=== PATIENT | male | born 1950 | race Hispanic/Latino ===

== ENCOUNTER 2017-12-14 11:40 | Inpatient (IN) | payer MEDICARE, OTHER ==
[~2017-12-14 11:40] MED LIST: ISOVUE-370 76%-LOCM 1 ML ONE
[2017-12-14] MEDS ORDERED: Propofol 1,000 MG/100 ML VIAL IV ONE (11:56)
[2017-12-14 12:02] LABS: #Eosinphils 0.1 thou/uL (0.0-0.7); #Lymphocytes 0.6 thou/uL (1.20-3.40); #Monocytes 0.3 thou/uL (0.11-0.59); #Neutrophils 6.1 thou/uL (1.40-6.50); %Basophils 0.5 % (0.0-1.0); %Eosinophils 1.1 % (0.0-10.0); %Lymphocytes 8.3 % (21.0-51.0); %Monocytes 4.3 % (0.0-10.0); %Neutrophils 85.9 % (42.0-75.0); Mean Corpuscular HGB CONC 32.7 g/dL (32.0-36.0); Mean Corpuscular Hemoglobin 31.6 pg (27.0-31.0); Mean Corpuscular Volume 96.6 fL (78.0-98.0); Mean Platelet Volume 11.8 fL (7.4-10.4); Platelet Count 109 thou/uL (130-400); RBC Distribution Width 14.9 % (11.5-14.5); Red Blood Cell (RBC) Count 4.44 mill/uL (4.70-6.10); White Blood Cell (WBC) Count 7.1 thou/uL (4.8-10.8)
[2017-12-14 12:02] LABS: Base Excess-Venous -0.7 mmol/L (0 (+/- 2.5)); Bicarbonate (HCO3v) 26.8 mmol/L (1.0-85.0); Calcium, Ionized 0.93 mmol/L (1.12-1.32); Hemoglobin - Calc 14.1 g/dL (12.0-18.0); Lactate 1.18 mmol/L (0.50-2.20); O2 Tension (PvO2) 45.4 mmHg (35.0-45.0); Potassium 4.8 mmol/L (3.4-4.7); T. Carbon Dioxide 28.5 mmol/L (1.0-85.0); pH (Venous) 7.296 (7.35-7.45); vO2 Saturation-calc 75.3 % (94-98)
[2017-12-14 12:03] LABS: PTT 45.3 SEC (22.9-36.1); Prothrombin Time 16.4 SEC (12.0-14.7)
[2017-12-14 12:05] LABS: INR-International Normal Ratio 1.3
[2017-12-14 12:11] LABS: ALT (SGPT) 12 U/L (8-55); AST (SGOT) 34 U/L (5-34); Albumin 4.5 g/dL (3.4-4.8); Alkaline Phosphatase 185 U/L (40-150); Anion Gap 25 mmol/L (10-20); BUN (Urea Nitrogen) 77 mg/dL (8.4-25.7); Bilirubin, Total 0.7 mg/dL (0.2-1.2); Calc. Creatinine Clearance 0 mL/min (70-130); Calcium 8.7 mg/dL (7.8-10.44); Carbon Dioxide 18 mmol/L (23-31); Chloride 98 mmol/L (98-107); Estimated GFR-MDRD 6; Globulin 4.4 g/dL (2.4-3.5); Glucose 191 mg/dL (80-115); Potassium 4.8 mmol/L (3.5-5.1); Protein, Total 8.9 g/dL (5.8-8.1); Sodium 136 mmol/L (136-145)
[2017-12-14 12:15] LABS: CKMB 3.1 ng/mL (0-6.6); PLT Morphology Comment Appears Decreased; RBC Morphology Normal
[2017-12-14 12:33] LABS: Amphetamine Not Detected (NotDetected); Barbiturates Screen Not Detected (NotDetected); Benzodiazepine Screen Not Detected (NotDetected); Cocaine Metabolite Screen Not Detected (NotDetected); Medtox Control Line Valid? VALID (VALID); Medtox Reader # READER 1; Methadone Not Detected (NotDetected); Methamphetamine Not Detected (NotDetected); Opiate Screen Not Detected (NotDetected); Oxycodone Screen Not Detected (NotDetected); Phencyclidine (PCP) Not Detected (NotDetected); THC/Cannabinoid Screen Not Detected (NotDetected); Tricyclic Screen Not Detected (NotDetected)
[2017-12-14] MEDS ORDERED: Labetalol HCl 100 MG/20 ML VIAL ONE (12:36)
--- NOTE | 2017-12-14 12:42 | CT ---
CT HEAD NONCONTRAST: History: Altered mental status. Headache. FINDINGS: No comparison. Ventricular system is diffusely dilated. Hyperdense fluid is present throughout the 3r d and 4th ventricles and the left lateral ventricle. A small amount of blood is also present within t he right lateral ventricle. Septum pellucidum is shifted rightward slightly by the asymmetry of blood within the ventricles. There is diffuse effacement of the cortical sulci and basilar cisterns. Cereb ellar tonsils extend into the foramen magnum. Tiny foci of hyperdense fluid are noted into the left f rontal white matter. IMPRESSION: 1. Obstructive hydrocephalus with large amount of acute intraventricular hemorrhage as detailed above . Possible very small amount of left frontal intraparenchymal hemorrhage. Cause for hemorrhage is not readily apparent and may be choroidal or appendical in origin. 2. Diffuse cerebral edema secondary to the hemorrhage. Findings were called to Dr. Campbell in the Emergency Department at 1222 hours. Code CR POS: CET
--- NOTE | 2017-12-14 12:44 | RAD ---
CHEST 1 VIEW: HISTORY: Status post intubation. Mental status change. FINDINGS: Portable single view chest demonstrates an endotracheal tube that extends beyond the clavicles. Ther e are sternotomy wires. Overlying defibrillator pads are noted. Heart size is enlarged. Pulmonary vessels are within normal limits. Costophrenic angles are clear. No masses or consolidation. No pn eumothorax or osseous abnormalities. IMPRESSION: 1. Cardiomegaly. No acute cardiopulmonary process. 2. Endotracheal tube with the distal tip 2.8 cm above the alf. POS: [facility]
[2017-12-14] MEDS ORDERED: Lidocaine 1% w/Epinephrine 1:100K 20 ML VIAL ONE (13:12)
[2017-12-14 13:17] LABS: Actual Bicarbonate (HCO3a) 22.3 mEq/L (22-28); CO2 Tension 36.9 mmHg (35.0-45.0); Carboxyhemoglobin (COHb) 1.1 gm% (0.0-3.0); Hemoglobin (Hb) 13.6 g/dL (14.0-18.0); O2 Tension (PaO2) 114.5 mmHg (> 80.0)
[2017-12-14 13:18] LABS: ALV-art Gradient 195.875 (0-20); Puncture Site RRA
[2017-12-14] MEDS ORDERED: niCARdipine 20MG In NaCl 20 MG/200 ML BAG ONE (13:39)
[2017-12-14] MEDS ORDERED: Ondansetron HCl/PF 4 MG/2 ML Vial IVP PRN (13:41)
[2017-12-14] MEDS ORDERED: niCARdipine 20MG in NaCl 200 ML BAG IVPB PRN (13:41)
[2017-12-14] MEDS ORDERED: CCU Electrolyte Replacement 1 EACH IVPB ONE (13:41)
[2017-12-14] MEDS ORDERED: Ventilator Sedation Protocol 1 EACH FS SCH (13:45)
--- NOTE | 2017-12-14 15:29 | CT ---
CT ANGIOGRAM OF THE HEAD: Date: 12/14/17 HISTORY: Extensive intraventricular hemorrhage. Patient is a dialysis patient. Evaluate for possible aneurysm. COMPARISON: 12/14/17 at 1219 hours. TECHNIQUE: Noncontrast head CT is performed in the axial plane. CT angiogram of the head is performed in the axi al plane. Three-dimensional reformatted images are submitted for interpretation. FINDINGS: NONCONTRAST HEAD CT: Redemonstration of marked intraventricular hemorrhage. The amount of ventricular blood has not signif icantly changed. The overall configuration of the ventricular system is stable. There has been interv al placement of a ventricular shunt catheter via the right frontal approach. There is hemorrhage tai g the shunt catheter placement compatible with iatrogenic change. There is no midline shift. Basilar cisterns are patent. Stable brain volume. Stable aeration of the sinuses. CT ANGIOGRAM: The distal cervical and intracranial carotid arteries have appropriate enhancement and luminal diamet er. There is atherosclerosis of both cavernous segments. Anterior Circulation: Symmetric enhancement and luminal diameter of the A1 and M1 segments. Proximal A2 segments and MCA br anches are also symmetric. There is no evidence of an anterior circulation aneurysm. Posterior Circulation: Limited evaluation of both PICA artery origins. The left PICA artery origin appears to be unremarkabl e. Both vertebral arteries supply a normal appearing basilar artery. The left and right P1 segments h ave symmetric enhancement and luminal diameter. No evidence of a posterior circulation aneurysm. IMPRESSION: 1. Extensive intraventricular hemorrhage. Patient is status post ventricular shunt catheter placeme nt. 2. No obvious anterior circulation or posterior circulation aneurysm. POS: [facility]
[2017-12-14] MEDS ORDERED: niCARdipine HCl 25 MG in Sodium Chloride 0.9% 250 ML 240 ML IVPB PRN (15:36)
[2017-12-14] MEDS ORDERED: Potassium Phosphate 12 MMOL in Sodium Chloride 0.9% 250 ML 250 ML IV PRN (15:37)
[2017-12-14] MEDS ORDERED: DISCONTINUE PREVIOUS NARCOTIC PAIN MEDICATIONS AND BENZODIAZEPINES FS SCH (15:37)
[2017-12-14] MEDS ORDERED: Magnesium 2 GM/NS 0.9% 100 ML 2 GM in Premix Bag 1 BAG IVPB PRN (15:37)
[2017-12-14] MEDS ORDERED: Propofol BOLUS 1,000 MG/100 ML VIAL IV PRN (15:37)
[2017-12-14] MEDS ORDERED: Propofol 1,000 MG/100 ML VIAL IV PRN (15:37)
[2017-12-14] MEDS ORDERED: Potassium Phosphate 15 MMOL in Sodium Chloride 0.9% 250 ML 250 ML IV PRN (15:37)
[2017-12-14] MEDS ORDERED: Potassium Chloride 40 MEQ in Premix Bag 1 BAG IVPB PRN (15:37)
[2017-12-14] MEDS ORDERED: Fentanyl BOLUS 250 ML IVPB PRN (15:37)
[2017-12-14] MEDS ORDERED: Potassium Chloride 20 MEQ TAB PO PRN (15:37)
[2017-12-14] MEDS ORDERED: CCU ELECTROLYTE REPLACEMENT PROTOCOL FS PRN (15:37)
[2017-12-14] MEDS ORDERED: Potassium Phosphate 9 MMOL in Sodium Chloride 0.9% 100 ML IVPB PRN (15:37)
[2017-12-14] MEDS ORDERED: Potassium Chloride 40 MEQ in Sodium Chloride 0.9% 250 ML 250 ML IVPB PRN (15:37)
[2017-12-14] MEDS ORDERED: Lorazepam 2 MG/ML VIAL SLOW IVP PRN (15:37)
[2017-12-14] MEDS ORDERED: Magnesium Oxide 400 MG TAB PO PRN ×2 (15:37)
[2017-12-14] MEDS ORDERED: fentaNYL Citrate/PF 2,000 MCG in Sodium Chloride 0.9% 60 ML IV SCH (15:37)
[2017-12-14 16:42] LABS: Troponin I 0.319 ng/mL (< 0.028)
[2017-12-14] MEDS: Sodium Chloride 0.9% 1,000 ML IV SCH (17:38)
--- NOTE | 2017-12-14 18:56 | OP ---
DATE OF PROCEDURE: 12/14/2017 PROCEDURE: Right external ventricular drain placement. DIAGNOSES: Intraventricular hemorrhage and coma and obstructive hydrocephalus. CLINICIAN: Ayaan Granados PA-C PROCEDURE IN DETAIL: The patient's right frontal scalp was prepped with a Betadine solution. Cindy 's point was identified and marked. 1% lidocaine with epinephrine was administered at the site with a total of 2 mL given. The scalp was incised with #15 blade knife over the same marked incision poin t. A cranial twist drill was used to create a josé antonio hole and a ventricular catheter was placed at 6 c m into the right lateral ventricle of bloody CSF per tube was visualized. This was then hooked up to the Moya drain at 10 cm of water. The incision was closed with 3-0 Ethilon and the drain wa s tied down with . Sterile technique was practiced throughout the duration of the procedure. T he wound site was appropriately dressed. The patient tolerated the procedure well.
--- NOTE | 2017-12-14 19:55 | CON ---
DATE OF CONSULTATION: 12/14/2017 SERVICE: Renal Medicine. HISTORY OF PRESENT ILLNESS: Mr. Farah is a 67-year-old male with ESRD - on maintenance hemo dialysis Thursday, Thursday, and Thursday, admitted for mental status change. Imaging of the head with a CT scan showed increased intracranial pressure from hydrocephalus. Neurosurgery has been consulted. We are now being consulted for his maintenance hemodialysis. Due t o the recent acute cerebrovascular event, we will hold dialysis today and resume him back tomorrow, T . Initial CT of the brain showed an obstructive hydrocephalus with large amount of acute intraventricul ar hemorrhage. There is a possible small amount of left frontal intraparenchymal hemorrhage. REVIEW OF SYSTEMS: Not obtainable since the patient is unresponsive. Based on the history, the bharti ent presented with headache and mental status change. MEDICATIONS: Currently on fentanyl bolus p.r.n., Ativan 2 mg IV q.1 hour p.r.n. He is on nicardipin e drip, maintaining BP at least 140 systolic or greater or around 140 systolic. Normal saline at 30 mL an hour. PAST MEDICAL HISTORY: 1. Type 2 diabetes mellitus. 2. Hypertension. 3. ESRD - currently on maintenance hemodialysis. 4. History of hyperlipidemia. 5. Diabetic neuropathy with diabetic retinopathy. PAST SURGICAL HISTORY: 1. Status post AV fistula placement. 2. Status post left eye surgery. 3. Status post cuffed hemodialysis catheter placement. SOCIAL HISTORY: The patient is , 2 children. He lives in [place]. 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 Education, third year high school. Occasional alcohol, currently not s moking, no IV drug abuse. Status post blood transfusion. ALLERGIES: No known drug allergies. TRAUMA: None. IMMUNIZATIONS: Up to date. HOSPITALIZATIONS: Please see past medical history. PHYSICAL EXAMINATION: VITAL SIGNS: Blood pressure is 133/64, heart rate 101, respiratory rate 18, O2 sat 100%. GENERAL: The patient is not awake, sedated and intubated. SKIN: Adequate turgor. HEENT: Pinkish conjunctivae, anicteric sclerae. NECK: No neck mass, no carotid bruits, no JVD. CHEST: No deformities. LUNGS: Clear breath sounds, no wheezing. HEART: Normal sinus rhythm. No murmur, no gallops, no rubs. ABDOMEN: Globular, soft, nontender, no masses. EXTREMITIES: No edema, no deformities. NEUROLOGIC: Unresponsive. LABORATORY DATA: Laboratories of 12/14/2017, white count 7.1, hemoglobin 14. Sodium 136, potassium 4.8, chloride 104, carbon dioxide is 18, BUN 77, creatinine 8.35. Troponin I 0.319, calcium 8.7. IMAGING: CT scan of the brain showed obstructive hydrocephalus with large amount of acute intraventr icular hemorrhage. ASSESSMENT AND PLAN: 1. Status post cerebrovascular accident - with obstructive hydrocephalus - Neurosurgery is following . Continue supportive care. 2. End-stage renal disease, stable. We will continue current maintenance hemodialysis. Due to the recent acute cerebrovascular accident, we will hold off dialysis tonight. We will reevaluate the pat ient for his regular hemodialysis in a.m. Due to the recent CVA bleed, we will be avoiding heparin u se with this patient. Overall, prognosis remains guarded with this patient. Overall, agree with current management.
[2017-12-14] MEDS: CEFAZOLIN/Water 2 GM/20 ML SYRINGE SLOW IVP SCH (20:12)
--- NOTE | 2017-12-14 20:24 | CT ---
CT BRAIN WITHOUT CONTRAST: HISTORY: Intracerebral hemorrhage. Stroke. COMPARISON: CT brain from the same day. FINDINGS: There has been interval placement of a right frontal drainage catheter. There is a new right frontal intraparenchymal hemorrhage around the catheter tract. The ventricular system is massively dilated. There is hemorrhage throughout the lateral ventricles, as well as the third ventricle, fourth ventr icle, and foramen of Monro. There is some loss of normal sulcation. There is white matter edema. There is subarachnoid hemorrhag e along both sylvian fissures. There is also what appears to be some subarachnoid hemorrhage along t he bilateral temporal lobes. IMPRESSION: 1. Interval placement of a right transfrontal shunt catheter with no significant improvement of the intraventricular hemorrhage or ventricular size. 2. New subarachnoid hemorrhage throughout both sylvian fissures, and along both temporal lobes. The re is also hemorrhage along the tentorium. 3. Transependymal flow of cerebrospinal fluid. POS: [facility]
[2017-12-15] MEDS ORDERED: Norepinephrine 8 MG/0.9% NS 250 ML ONE (00:28)
[2017-12-15] MEDS ORDERED: Norepinephrine 8 MG/250 ML BAG IVPB PRN (00:47)
[2017-12-15] MEDS: CEFAZOLIN/Water 2 GM/20 ML SYRINGE SLOW IVP SCH ×2 (04:21→12:25)
[2017-12-15 05:38] LABS: Anion Gap 27 mmol/L (10-20); BUN (Urea Nitrogen) 85 mg/dL (8.4-25.7); Calc. Creatinine Clearance 7 mL/min (70-130); Calcium 8.7 mg/dL (7.8-10.44); Carbon Dioxide 19 mmol/L (23-31); Chloride 97 mmol/L (98-107); Estimated GFR-MDRD 5; Glucose 173 mg/dL (80-115); Potassium 4.7 mmol/L (3.5-5.1); Sodium 138 mmol/L (136-145)
[2017-12-15 05:43] LABS: #Lymphocytes 0.5 thou/uL (1.20-3.40); #Monocytes 0.6 thou/uL (0.11-0.59); #Neutrophils 8.3 thou/uL (1.40-6.50); %Eosinophils 0.2 % (0.0-10.0); %Lymphocytes 5.7 % (21.0-51.0); %Monocytes 6.3 % (0.0-10.0); %Neutrophils 87.8 % (42.0-75.0); Hemoglobin 11.9 g/dL (14.0-18.0); Mean Corpuscular HGB CONC 34.4 g/dL (32.0-36.0); Mean Corpuscular Hemoglobin 32.2 pg (27.0-31.0); Mean Corpuscular Volume 93.6 fL (78.0-98.0); Mean Platelet Volume 11.9 fL (7.4-10.4); Platelet Count 129 thou/uL (130-400); RBC Distribution Width 15.1 % (11.5-14.5); White Blood Cell (WBC) Count 9.4 thou/uL (4.8-10.8)
[2017-12-15 05:52] LABS: HBSAg Index 0.16 S/CO (0-0.99); Hep B Surf Ag Non-Reactive S/CO (NonReactive)
[2017-12-15 07:28] LABS: pH, Arterial 7.62 (7.35-7.45)
[2017-12-15 07:29] LABS: Actual Bicarbonate (HCO3a) 20.8 mEq/L (22-28); CO2 Tension 20.8 mmHg (35.0-45.0); Carboxyhemoglobin (COHb) 0.4 gm% (0.0-3.0); Hemoglobin (Hb) 11.4 g/dL (14.0-18.0); O2 Tension (PaO2) 66.6 mmHg (> 80.0)
[2017-12-15 07:30] LABS: Potassium - ABG Lab 4.8 mmol/L (3.70-5.30)
--- NOTE | 2017-12-15 08:00 | HP ---
HISTORY OF PRESENT ILLNESS: Mr. Farah is a 67-year-old gentleman, who presents to the emergency [facility] via EMS for altered mental status and unspecified stroke symptoms. He was then departmen t with a CT scan performed of the brain showing massive intraventricular hemorrhage filling and expan ding the left lateral ventricle, third ventricle, and fourth ventricle with a small area of posterior blood in the occipital horn, in the atrium of the right ventricle. Additionally, he has obstructive ventriculomegaly throughout the ventricular system. According to family at bedside, patient was in his normal state of health this morning at 10:30, preparing to go to dialysis, which he has 3 times a week for chronic kidney disease, related to hypertension and diabetes. His family states that he st arted to report that he feels so that he must have eaten something that did not agree with him, as he was having hiccups and abdominal pain, then loaded up to go to dialysis, and from there, his neurolo gic status began to deteriorate further to a situation where he was unable to get up out of the chair to get to his walker. At this point, EMS was called. Upon arrival, he declined further interventio n that was recommended. For me at bedside, he is nonresponsive. He is intubated. He has pupils benjamin t are minimally reactive to light. The left pupil is somewhat smaller than the right, measuring 2 mm versus 3. PAST MEDICAL HISTORY: Significant for diabetes, hypertension, chronic kidney disease. CURRENT MEDICATIONS: Amlodipine, aspirin, losartan, metoprolol, hydralazine, gemfibrozil, simvastati n, Tradjenta, sertraline, pantoprazole, Renvela, Humalog, Lantus. latanoprost, timolol, Trusopt, Carolyn lyvite, doxycycline. ALLERGIES: No known drug allergies. PAST SURGICAL HISTORY: Cholecystectomy and then revision abdominal surgery. PHYSICAL EXAMINATION: Again, all previously described. ASSESSMENT: Acute intraventricular hemorrhage and coma. PLAN: I discussed with the patient's family at bedside that, at this time, the patient had life-thre atening ventriculomegaly secondary to impaired ventricular drainage, some massive intraventricular he morrhage that the best step to take in terms of life-saving procedure would be to place an external v entricular drain. The family agrees to this and would like to proceed. I did explain to them that, even with this, his prognosis is likely poor, although guarded at this time and that we would know mo re likely 24 hours from now if we got good placement of the catheter with patent drainage of the flui d sustained over that period of time. As we are unsure of the etiology of his hemorrhage, we will ob tain a CTA of brain and we will admit to the ICU with q.1-hour neuro checks. We will consult Nephrol ogy for the purpose of guidance and fluid resuscitation and restarting dialysis as needed. I will co nsult Pulmonary Critical Care for management of the ventilator and the medical issues while in the IC U. Head of be will be elevated at 30. We will place a ventricular drain and set it to 10 cm of wate r and leave it open. Ayaan Granados PA-C., dictating for Dr. King.
--- NOTE | 2017-12-15 08:12 | CON ---
DATE OF CONSULTATION: 12/14/2017 HISTORY OF PRESENT ILLNESS: This is a 67-year-old Latin-H[place]ian gentleman, who seeks care at [facility], Dr. Pulliam. As per his , he woke up this morning with altered mental status and a headache. Two months ago, he was hospitalized with an acute abdomen, complicated by an extensive bleeding following cholecystec mae. He then had a CT of his head which shows an obstructive hydrocephalus with a large amount of acute in traventricular hemorrhage, left frontal intraparenchymal hemorrhage, and diffuse cerebral edema. An intraventricular bolt was placed in. Emergency CT angio with contrast was performed. He is now in the ICU on the vent and reason for the consult. His is at the bedside, who gives extensive adequate history. PAST MEDICAL HISTORY: Pertinent for hypertension, diabetes, chronic renal failure, and reflux. CHRONIC MEDICATIONS: Amlodipine 10, aspirin 81, losartan 50, metoprolol 50, hydralazine 10 2 a day, gemfibrozil 600, simvastatin 40, Tradjenta 5, Zoloft 50, Protonix 40, Renvela 800, Lantus 30 units at night time, he is taking doxycycline for infected foot secondary to diabetes. PAST SURGICAL HISTORY: Otherwise included extensive as per the including recent laparoscopic ch olecystectomy; previous bypass surgery; access, multiple. Bypass surgery was done in a [facility] in [place]. Recently diagnosed to have atrial fibrillation and was supposed to see an EP physician at that time. SOCIAL HISTORY: Tobacco: None. Alcohol: None. Very remote/minimal history of pneumonia or asthma . REVIEW OF SYSTEMS: Otherwise unobtainable. He is on Cardene 2.5 mg an hour. PHYSICAL EXAMINATION: HEENT: His pupils are equal. VITAL SIGNS: His blood pressure 136/60, pulse 80, respiratory rate 16, sats are 98%. CHEST: With no wheezing, no crackles. CARDIAC: Normal S1, S2. No gallops. ABDOMEN: Soft, no masses. X-RAY FINDINGS: Chest x-ray is unremarkable. LABORATORY DATA: White count 7000, H&H 14 and 42, platelet count is low 109. INR is 1.3. PO2 is 11 4, pCO2 36, pH 7.4. Renal function showed BUN and creatinine of 77 and 8.3. Drug screen is negative . IMPRESSION: 1. Acute intraventricular hemorrhage with obstructive hydrocephalus, cerebral edema, requiring emerg ency ventricular bolt. 2. Renal failure. 3. Diabetes. 4. Respiratory failure, atrial fibrillation. PLAN: Pulmonary Critical Care will follow while in the ICU. At this stage, continue supportive care . Serial exam. This is a 45-minute critical care time.
[2017-12-15 08:16] VITALS: TEMP 99
--- NOTE | 2017-12-15 08:28 | CT ---
PRELIMINARY REPORT/[facility]/EMERGENTY AFTER-HOURS PROCEDURE CT Head Without Intravenous Contrast CLINICAL HISTORY: 67 years old, male; Condition or disease; Aneurysm, cerebral; Patient HX: Neuro changes TECHNIQUE: Axial computed tomography images of the head/brain without intravenous contrast. COMPARISON: CT Brain WO Con 2017-12-14 18:44 FINDINGS: Right frontal ventriculostomy catheter with the distal tip in the superior atrium and right ventricle . Extensive hemorrhage throughout the ventricles. Extensive bilateral subarachnoid hemorrhage. Mild global cerebral edema. Near complete obscuration of the paramesencephalic cisterns suggesting increasing edema and noBdefini tive transtentorial shift. The remaining portions of the study are unchanged compared with 1845 hrs. IMPRESSION: Slight decrease in the ventriculomegaly without significant change in the extensive intraventricular hemorrhage. Increasing cerebral edema. Stable bilateral subarachnoid hemorrhages. Thank you for allowing us to participate in the care of your patient. Dictated and Authenticated by: Parviz Horta MD 12/15/2017 1:05 AM Central Time ([place] & [place]) FINAL REPORT EMERGENT AFTER HOURS CT BRAIN WITHOUT CONTRAST: FINDINGS/IMPRESSION: I agree with the findings and impression given in the preliminary report per [facility] physician. There is intraventricular hemorrhage and ventriculomegaly. Diffuse subarachnoid hemorrhage is also seen. The extent of intraventricular hemorrhage may have slightly progressed compared to the prior examinat ion. POS: [facility]
--- NOTE | 2017-12-15 09:43 | CON ---
DATE OF CONSULTATION: 12/15/2017 CONSULTING PHYSICIAN: Dr. Chavez REASON FOR CONSULTATION: End-stage renal disease evaluation and care. REASON FOR ADMISSION: Altered mentation. HISTORY OF PRESENT ILLNESS: This is a 67-year-old male with history of end-stage renal dise ase, hypertension, diabetes, hyperlipidemia, who came to the hospital with altered mentation. The pa valeria was getting ready for dialysis yesterday and started having altered mentation with slurred spee ch and was taken to the hospital and was found to have a large intracranial bleed, currently intubate d seen in ICU. Family at bedside, [id number], son and . The patient was made DNR this morn ing. The patient was also evaluated by Dr. May the on-call epic specialist yesterday. The patient is n ot stable for dialysis per Neurosurgery team. No fever or chills reported. PAST MEDICAL HISTORY: End-stage renal disease on hemodialysis Thursday, Thursday and Thursday, history of diabetes, hypertension, hyperlipidemia, diabetic neuropathy and retinopathy. PAST SURGICAL HISTORY: AV fistula placement, left eye surgery and with cholecystectomy and abdominal surgery. HOME MEDICATIONS: Lantus, Humalog, Zocor, Renvela, sertraline, aspirin, Lopressor, Protonix, Cozaar, Norvasc, metoprolol, Tradjenta. ALLERGIES: No known drug allergies. SOCIAL HISTORY: No smoking or alcohol. FAMILY HISTORY: No history of kidney disease. REVIEW OF SYSTEMS: Review of systems could not be obtained as the patient is intubated. PHYSICAL EXAMINATION: GENERAL: This is a well-built male in no apparent distress. VITAL SIGNS: Temperature 99.0, pulse 70, respiratory rate 18, blood pressure 109/45. HEENT: Intubated. CARDIOVASCULAR: S1, S2 heard. RESPIRATORY: Clear. GI: Abdomen is soft. MUSCULOSKELETAL: No edema. DERMATOLOGIC: No skin rash. NEUROLOGIC: Intubated. PSYCHIATRIC: Not assessed. LABORATORY AND X-RAY FINDINGS: Potassium is 4.7, BUN 85, creatinine is 9.9. ASSESSMENT AND PLAN: 1. End-stage renal disease with a recent stroke. The patient is not able to tolerate dialysis at th is point. We will hold dialysis. No acute indication for dialysis. We will follow. 2. Hypertension. Blood pressure was low on pressors. 3. Recent cerebrovascular accident. 4. Edema, controlled. 5. Anemia. 6. Prognosis guarded. Follow with Neurosurgery team. We will hold dialysis due to high risk and wi ll continue to monitor. The family was updated at the bedside.
--- NOTE | 2017-12-15 11:14 | PRG ---
DATE OF SERVICE: 12/15/2017 Mr. Farah overnight had somewhat worsening of his neurologic examination where his pupils became uneq ual and he stopped breathing on the vent. A CT scan performed showed profound dilatation of the bila teral lateral ventricles in the temporal horns and occipital horns. EVD catheter is in place in the right anterior horn of the lateral ventricle. All of these changes occurred even with a patent EVD s till in place and draining. This morning, he has no brainstem reflexes that I can ascertain. He was started on Levophed after a precipitous drop in systolic pressures that brought him up back over 100 and has since been stopped. His systolic pressure is now 104/40. This likely represents a devastat ing brain herniation, and I discussed this with the family at bedside. They are understanding. He i s actually scheduled to go to dialysis today, but I think we will hold off in favor of doing an apnea test to see if, in fact, he suffered brain . We will plan to have this done, and if he fails, we will discuss further plans for family expectations moving forward.
--- NOTE | 2017-12-15 12:09 | PRG ---
DATE OF SERVICE: 12/15/2017 Mr. Farah is a 67-year-old gentleman with multiple medical comorbidities that presented with altered mental status yesterday in the setting of a head CT performed in the ER which shows a very large pred ominantly intraventricular hemorrhage with associated hydrocephalus. A ventriculostomy drain was lindsay jonelle in the ER. Subsequent to that time, he had a CT angiogram performed which was negative for aneur ysm or other vascular malformation. While in the ICU the drain clogged once and was reconstituted with flushing. It continues to run int ermittently. Neurologically Mr. Farah is doing quite poorly. He is in a state of coma. He does overbreathe the v ent. I had a discussion with the family present underscoring the severity of his hemorrhage as well as the associated neurologic exam. They are inclined to move toward withdrawal of care pending additional arrival of family members. I believe this to be a very reasonable decision, given, I believe Mr. Rey childress is unlikely to regain consciousness or any significant degree of function.
[2017-12-15 13:53] VITALS: BMI 21.5
[2017-12-15 15:03] VITALS: BP 110/51
[2017-12-15] MEDS: Sodium Chloride 0.9% 1,000 ML IV SCH (15:32)
--- NOTE | 2017-12-15 16:05 | PRG ---
DATE OF SERVICE: 12/15/2017 SUBJECTIVE: A 67-year-old Latin-Swiss gentleman remains intubated in the vent. No sedation. Remains unresponsive. Pupils are 2 mm and breathing over the vent at about 19. OBJECTIVE: VITAL SIGNS: Blood pressure 150/54, off all pressors. Temperature is 97, respirations noted, sats are 96%. GENERAL: He is unresponsive. CHEST: Decreased breath sounds, no wheezing. CARDIAC: Normal S1, S2, no gallops. ABDOMEN: Soft without any masses. LABORATORY DATA: White count 9,000, H&H is 11 and 34, platelet count 129. His renal function shows a BUN and creatinine of 85 and 9.4, glucose 173, pO2 is 66 , pCO2 27_, rate of 14, 40% FIO2. IMAGING: A CT brain shows new subarachnoid hemorrhage throughout both fissures and temporal lobes. IMPRESSION: 1. Extensive subarachnoid intracerebral hemorrhage. 2. Diabetes. 3. Renal failure. PLAN: Patient's overall prognosis is grave. Awaiting input from Neurosurgery, talked with family. He is now brain , cannot do an apnea test at this time. We will continue supportive care. Prognosis is grave. A 30-minute critical care time. [facility]
[2017-12-15] MEDS ORDERED: Morphine 10 MG/ML VIAL SLOW IVP PRN (18:54)
[2017-12-15] MEDS ORDERED: Lorazepam 2 MG/ML VIAL SLOW IVP PRN (18:54)
[2017-12-15] MEDS ORDERED: CEFAZOLIN/Water 2 GM/20 ML SYRINGE SLOW IVP SCH (20:00)
--- NOTE | 2017-12-17 11:59 | DIS ---
SUMMARY Mr. Farah is a 67-year-old man who was admitted to [facility] on 12/14/2017 for severe intra parenchymal and intraventricular hemorrhage and altered mental status with coma. Bedside procedures were performed including ventriculostomy placement. Consultations were ordered to Medicine and Nephr ology and Pulmonary Critical Care. Ultimately, the patient succumbed to severe intracranial pressure secondary to this intraventricular hemorrhage and on 12/15/2017.
--- NOTE | 2017-12-19 16:37 | EKG ---
Test Reason : STROKE ALERT Blood Pressure : / mmHG Vent. Rate : 090 BPM Atrial Rate : 096 BPM P-R Int : 000 ms QRS Dur : 108 ms QT Int : 440 ms P-R-T Axes : 000 131 128 degrees QTc Int : 538 ms Atrial fibrillation Right axis deviation Prolonged QT Abnormal ECG Confirmed by MEDINA FRNAK ([id number]), associate editor VICKIE CORBETT ([id number] on 12/19/2017 4:37:18 PM Referred By: Confirmed By:MEDINA FRANK
--- NOTE | 2017-12-21 10:57 | RAD ---
PORTABLE AP CHEST: Date: 12/15/17 HISTORY: On ventilator. COMPARISON: 12/14/17. FINDINGS: This examination was performed on 12/15/17 but is not being submitted for interpretation until . Endotracheal tube is again noted in place. There has been interval placement of a nasogastric tube wi th tip overlying the expected location of the body of the stomach. Multiple clinical research monitor leads ove rlie the chest. 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 The cardiac silhouette is magnif ied by projection and stable in size, but is probably mildly enlarged. There is atelectasis present a t the left lung base. Artifact overlies the upper lung zones, but pulmonary vasculature does appear m ildly increased. No other interval change. IMPRESSION: 1. Endotracheal tube stable in position. 2. Interval placement of nasogastric tube with tip overlying the expected location of the body of th e stomach. 3. Atelectasis versus developing infiltrate left lung base. Follow-up evaluation suggested. 4. Mild pulmonary vascular congestion with enlargement of the cardiac silhouette. Findings may be re lated to mild CHF in the correct clinical scenario. POS: HEIDI
== END 2017-12-15 21:51 | disposition expired | DRG 23 ==
LOC: ERS 11:40 → CCU 15:37
PROVIDERS: ADMIT Emergency Medicine; ATTEND Emergency Medicine
PROC: 009630Z Drainage of Cerebral Ventricle with Drainage Device, Percutaneous Approach (ICD-10-PCS; principal; 2017-12-14)
PROC: 0BH17EZ Insertion of Endotracheal Airway into Trachea, Via Natural or Artificial Opening (ICD-10-PCS; 2017-12-14)
PROC: 5A1935Z Respiratory Ventilation, Less than 24 Consecutive Hours (ICD-10-PCS; 2017-12-14)
DX: I61.5 Nontraumatic intracerebral hemorrhage, intraventricular (principal); N18.6 End stage renal disease; G93.6 Cerebral edema; J96.90 Respiratory failure, unspecified, unspecified whether with hypoxia or hypercapnia; I12.0 Hypertensive chronic kidney disease with stage 5 chronic kidney disease or end stage renal disease; G91.1 Obstructive hydrocephalus; G93.89 Other specified disorders of brain; E11.22 Type 2 diabetes mellitus with diabetic chronic kidney disease; Z66 Do not resuscitate; R40.20 Unspecified coma; E11.42 Type 2 diabetes mellitus with diabetic polyneuropathy; E11.319 Type 2 diabetes mellitus with unspecified diabetic retinopathy without macular edema; I48.91 Unspecified atrial fibrillation; E78.5 Hyperlipidemia, unspecified; Z99.2 Dependence on renal dialysis; Z79.82 Long term (current) use of aspirin; Z79.4 Long term (current) use of insulin; Z79.899 Other long term (current) drug therapy
CPT/HCPCS: 31500; 36415; 36416; 51702; 70450; 70496; 71045; 80048; 80053; 80306; 82330; 82553; 82803; 82805; 83605; 84484; 85025; 85610; 85730; 87340; 90935; 93005; 94002; 94003; 96365; 96366; 96367; 96374; 96376; 99292; G0257; J2001; J2060; J2270; J2704; J7050